=== PATIENT | male | born 1970 | race Caucasian/White ===

== ENCOUNTER 2018-04-19 20:25 | Emergency (ER) | payer OTHER ==
--- NOTE | 2018-04-19 20:31 | EDPHY ---
H & P Time Seen by Provider: 04/19/18 20:31 HPI/ROS: Chief complaint. Ankle injury HPI. Patient 47-year-old male was hiking earlier today and a rock shifted and he rolled his ankle over. He walked out. He then went for a 1 and 0.5 hr bike ride. He did some other walking around and then went to the theater tonight. While in the theater he had increased pain. He called 911. Received 200 mcg of fentanyl in route. No history of previous ankle injury. He denies other injuries. ROS Constitutional. no fever/chills, no weakness Eyes. no problems with vision ENT. no sore throat, no nasal drainage Cardiovascular. no chest pain Respiratory. no shortness of breath, no cough Abdominal. no abdominal pain, no nausea/vomiting, no diarrhea . no problems urinating MS. Left ankle pain Skin. no rash Lymph. no swollen glands Neuro. no headache, no dizziness, no difficulty walking or with speech Past Medical/Surgical History: Asthma Social History: , nonsmoker, no alcohol Physical Exam: General Appearance: Alert slightly drowsy well-developed male mild distress vital signs are stable. Eyes: Pupils equal and round no pallor or injection. ENT, Mouth: Mucous membranes are moist. Respiratory: There are no retractions, lungs are clear to auscultation. Cardiovascular: Regular rate and rhythm. Gastrointestinal: Abdomen is soft and nontender, no masses, bowel sounds normal. Neurological: Awake and alert, sensory and motor exams grossly normal. Skin: Warm and dry, no rashes. Musculoskeletal: Neck is supple nontender. Extremities tender to both medial and lateral aspects of the left ankle. No significant swelling. No deformity. No tenderness at the base of the 5th metatarsal. Achilles is intact. Pulses are good Psychiatric: Patient is oriented X 3, there is no agitation. Constitutional: Initial Vital Signs Temperature (C) 36.6 C 04/19/18 20:28 Heart Rate 74 04/19/18 20:28 Respiratory Rate 16 04/19/18 20:28 Blood Pressure 128/87 H 04/19/18 20:28 O2 Sat (%) 93 04/19/18 20:28 O2 Delivery Mode Room Air O2 (L/minute) 2 Allergies/Adverse Reactions: Penicillins Allergy (Verified 04/19/18 20:31) Home Medications: Medication Instructions Recorded Albuterol 04/19/18 Hydrocodone/APAP 5/325 [[place] 1 each PO Q4-6PRN PRN #10 tab 04/19/18 5/325 (*)] Medical Decision Making - Diagnostics Imaging Results: X-ray left ankle shows possible chip fracture or avulsion fracture off the posterior talus. Procedures: Patient desaturate somewhat into the upper 80s on room air after the fentanyl. He is placed on oxygen ED Course/Re-evaluation: Recheck 9:00 p.m.. Patient is asking for more pain medication. He received fentanyl IV per EMS however has not taken any anti-inflammatories. He will be given Toradol IV Fentanyl 50 mcg IV Patient is placed in a orthotic boot. Post boot application shows good anatomic position and distal motor vascular sensitivity to be intact. Differential Diagnosis: I considered fracture, dislocation, sprain - Data Points Medications Given: Discontinued Medications Fentanyl (Sublimaze) 50 mcg IVP EDNOW ONE Stop: 04/19/18 21:33 Last Admin: 04/19/18 21:36 Dose: 50 mcg Ketorolac Tromethamine (Toradol) 30 mg IVP EDNOW ONE Stop: 04/19/18 21:04 Last Admin: 04/19/18 21:19 Dose: 30 mg Departure - Departure Disposition: Home, Routine, Self-Care Clinical Impression: Ankle sprain Qualifiers: Encounter type: initial encounter Involved ligament of ankle: unspecified ligament Laterality: left Qualified Code(s): S93.402A - Sprain of unspecified ligament of left ankle, initial encounter Condition: Good Instructions: Ankle Sprain (ED) Additional Instructions: Ice and elevation next 24-48 hours. Ibuprofen 600 mg every 6 hr for discomfort. Hydrocodone in addition if necessary. Splint and crutches for 1 week. For continued symptoms follow-up with orthopedist Return sooner for worsening symptoms Referrals: Patient,NotPresent [Unknown] - As per Instructions Alexi Dover MD [Medical Doctor] - 5-7 days, if not improved Prescriptions: Hydrocodone/APAP 5/325 [[place] 5/325 (*)] 1 each PO Q4-6PRN PRN #10 tab PRN Reason: Pain, Moderate
[2018-04-19] MEDS ORDERED: KETOROLAC 30 MG/1 ML SDV IVP ONE (21:03)
[2018-04-19] MEDS ORDERED: fentaNYL 100 MCG/2 ML INJ IVP ONE (21:32)
[2018-04-19] MEDS ORDERED: HYDROCOD/APAP 5/325 PREPACK#6 BTL TAKEHOME ONE (21:45)
[2018-04-19 22:37] VITALS: BP 133/91
== END 2018-04-19 22:37 | disposition home or self-care (01) ==
DX: S93.402A Sprain of unspecified ligament of left ankle, initial encounter (principal); Z88.0 Allergy status to penicillin; X50.1XXA Overexertion from prolonged static or awkward postures, initial encounter; Y93.01 Activity, walking, marching and hiking
CPT/HCPCS: 96374; J1885; J3010; L4386